=== PATIENT | female | born 2000 | race Caucasian/White ===

== ENCOUNTER 2018-11-04 16:08 | Outpatient (CLI) | payer OTHER ==
[~2018-11-04 16:08] MED LIST: BENTYL10 MG/ML; TIGAN300 MG
[2018-11-04] MEDS ORDERED: PRENATAL CAPLE1 EAC1 PO (18:20)
== END 2018-11-05 13:28 | disposition home or self-care (01) ==
LOC: OBS/DEL 16:08
DX: O35.8XX0 Maternal care for other (suspected) fetal abnormality and damage, not applicable or unspecified (principal); O47.1 False labor at or after 37 completed weeks of gestation; Z34.83 Encounter for supervision of other normal pregnancy, third trimester

== ENCOUNTER 2018-11-05 12:31 | Inpatient (IN) | payer OTHER ==
[~2018-11-05] VITALS: Ht 162.6 cm; Wt 54.9 kg
[~2018-11-05 12:31] MED LIST changes: +PRENATAL CAPLE1 EAC1 PO
== END 2018-11-07 15:47 | disposition home or self-care (01) | DRG 807 ==
LOC: OB/GYN 12:31 → LDR 12:31 → OB/GYN 16:11
PROVIDERS: ADMIT Obstetrics & Gynecology
PROC: 10E0XZZ Delivery of Products of Conception, External Approach (ICD-10-PCS; principal; 2018-11-05)
PROC: 0KQM0ZZ Repair Perineum Muscle, Open Approach (ICD-10-PCS; 2018-11-05)
PROC: 0UQMXZZ Repair Vulva, External Approach (ICD-10-PCS; 2018-11-05)
PROC: 0W8NXZZ Division of Female Perineum, External Approach (ICD-10-PCS; 2018-11-05)
PROC: 4A1HXCZ Monitoring of Products of Conception, Cardiac Rate, External Approach (ICD-10-PCS; 2018-11-05)
DX: O70.1 Second degree perineal laceration during delivery (principal); O71.82 Other specified trauma to perineum and vulva; Z37.0 Single live birth; Z3A.38 38 weeks gestation of pregnancy